=== PATIENT | male | born 1965 | race Caucasian/White ===

== ENCOUNTER 2022-04-07 10:13 | Inpatient (IN) | payer OTHER ==
[2022-04-07 11:02] VITALS: BMI 22.0
[2022-04-07] MEDS ORDERED: LOPERAMIDE HCL 2 MG CAPSULE PO PRN (11:33)
[2022-04-07] MEDS ORDERED: BENZOCAINE/MENTHOL (CHLORASEPTIC ) LOZENGE MM PRN (11:33)
[2022-04-07] MEDS ORDERED: MAGNESIUM CITRATE 300 ML BOTTLE PO PRN (11:33)
[2022-04-07] MEDS ORDERED: BISMUTH SUBSALICYLATE 524 MG/30 ML PO PRN (11:33)
[2022-04-07] MEDS ORDERED: DICYCLOMINE HCL 10 MG CAPSULE PO PRN (11:33)
[2022-04-07] MEDS ORDERED: ONDANSETRON *ODT* 4 MG TABLET SL PRN (11:33)
[2022-04-07] MEDS ORDERED: NALOXONE HCL (KLOXXADO) 8 MG SPRAY NS PRN (11:33)
[2022-04-07] MEDS ORDERED: ACETAMINOPHEN 325 MG TABLET (FP) PO PRN ×2 (11:33)
[2022-04-07] MEDS ORDERED: IBUPROFEN 600 MG TABLET (FP) PO PRN (11:33)
[2022-04-07] MEDS ORDERED: MAGNESIUM HYDROX 2400MG/30ML ORAL SUSPENSION 30 ML CUP PO PRN (11:33)
[2022-04-07] MEDS ORDERED: IBUPROFEN 400 MG TABLET (FP) PO PRN (11:33)
[2022-04-07] MEDS ORDERED: chlordiazePOXIDE HCL 25 MG CAPSULE PO ONE (11:45)
[2022-04-07] MEDS ORDERED: chlordiazePOXIDE HCL 25 MG CAPSULE ONE (11:47)
[2022-04-07] MEDS: hydrOXYzine PAMOATE 25 MG CAPSULE (FP) PO PRN ×3 (12:07→22:12)
[2022-04-07] MEDS: PRENATAL VITAMINS W/ FOLIC ACID TABLET (FP) PO SCH (12:09)
[2022-04-07] MEDS: METHOCARBAMOL 500 MG TABLET PO PRN (12:09)
[2022-04-07] MEDS: chlordiazePOXIDE HCL 25 MG CAPSULE PO PRN ×2 (13:14→20:01)
[2022-04-07 15:40] LABS: HEMATOCRIT 40.9 % (35.4-49); HEMOGLOBIN 13.6 GM/dL (11.7-16.9); MCH 30.7 pg (25.7-33.7); MCHC 33.4 g/dl (32.0-35.9); MEAN CELL VOLUME 91.8 fl (80-96); MEAN PLT VOLUME 7.4 fl (7.5-11.1); PLATELET COUNT 306 10^3/uL (134-434); RBC 4.45 M/mm3 (4.00-5.60); RDW 14.8 % (11.9-15.9); WHITE BLOOD COUNT 4.4 K/mm3 (4.0-10.0)
[2022-04-07 16:10] LABS: ALBUMIN 3.8 g/dl (3.4-5.0); BLOOD UREA NITROGEN 15.9 mg/dL (7-18); CALCIUM 9.4 mg/dL (8.5-10.1)
[2022-04-07 16:13] LABS: CREATININE 0.8 mg/dL (0.55-1.3)
[2022-04-07 16:15] LABS: BILIRUBIN,TOTAL 0.6 mg/dL (0.2-1)
[2022-04-07] MEDS: chlordiazePOXIDE HCL 25 MG CAPSULE PO SCH ×2 (17:19→22:13)
[2022-04-07] MEDS: MELATONIN 5 MG TABLETS PO SCH (22:12)
[2022-04-07] MEDS: THIAMINE HCL 100 MG TABLET (FP) PO SCH (22:14)
[2022-04-08] MEDS: chlordiazePOXIDE HCL 25 MG CAPSULE PO SCH ×4 (05:14→22:07)
[2022-04-08] MEDS: hydrOXYzine PAMOATE 25 MG CAPSULE (FP) PO PRN ×2 (10:15→16:51)
[2022-04-08] MEDS: PRENATAL VITAMINS W/ FOLIC ACID TABLET (FP) PO SCH (10:15)
[2022-04-08] MEDS ORDERED: FLU VACC QS2022-23(6MOS UP)/PF 60 MCG/0.5 ML SYRINGE IM ONE (12:00)
[2022-04-08] MEDS: chlordiazePOXIDE HCL 25 MG CAPSULE PO PRN ×2 (14:52→19:17)
[2022-04-08] MEDS: METHOCARBAMOL 500 MG TABLET PO PRN (16:51)
[2022-04-08] MEDS: LACTULOSE 20 GM/30 ML UDC (FOR ORAL USE ONLY) PO SCH ×2 (18:17→22:06)
[2022-04-08] MEDS: MELATONIN 5 MG TABLETS PO SCH (22:06)
[2022-04-08] MEDS: THIAMINE HCL 100 MG TABLET (FP) PO SCH (22:06)
[2022-04-08] MEDS: MAG HYDROX/AL HYDROX/SIMETH 30 ML UNIT-DOSE CUP PO PRN (23:58)
[2022-04-09] MEDS: chlordiazePOXIDE HCL 25 MG CAPSULE PO PRN (01:33)
[2022-04-09] MEDS: hydrOXYzine PAMOATE 25 MG CAPSULE (FP) PO PRN ×4 (01:36→19:37)
[2022-04-09] MEDS: chlordiazePOXIDE HCL 25 MG CAPSULE PO SCH ×4 (05:15→22:15)
[2022-04-09] MEDS: PRENATAL VITAMINS W/ FOLIC ACID TABLET (FP) PO SCH (10:15)
[2022-04-09] MEDS: LACTULOSE 20 GM/30 ML UDC (FOR ORAL USE ONLY) PO SCH ×4 (10:15→22:15)
[2022-04-09] MEDS: METHOCARBAMOL 500 MG TABLET PO PRN ×2 (10:15→17:17)
[2022-04-09] MEDS: THIAMINE HCL 100 MG TABLET (FP) PO SCH (22:15)
[2022-04-09] MEDS: MELATONIN 5 MG TABLETS PO SCH (22:15)
[2022-04-10] MEDS ORDERED: chlordiazePOXIDE HCL 10 MG CAPSULE PO PRN
[2022-04-10] MEDS: hydrOXYzine PAMOATE 25 MG CAPSULE (FP) PO PRN ×3 (01:07→19:33)
[2022-04-10] MEDS: METHOCARBAMOL 500 MG TABLET PO PRN ×3 (01:07→17:38)
[2022-04-10] MEDS: chlordiazePOXIDE HCL 10 MG CAPSULE PO SCH ×4 (05:37→22:19)
[2022-04-10] MEDS: PRENATAL VITAMINS W/ FOLIC ACID TABLET (FP) PO SCH (10:12)
[2022-04-10] MEDS: LACTULOSE 20 GM/30 ML UDC (FOR ORAL USE ONLY) PO SCH ×4 (10:13→23:52)
[2022-04-10] MEDS: MAG HYDROX/AL HYDROX/SIMETH 30 ML UNIT-DOSE CUP PO PRN (21:18)
[2022-04-10] MEDS: MELATONIN 5 MG TABLETS PO SCH (22:18)
[2022-04-10] MEDS: THIAMINE HCL 100 MG TABLET (FP) PO SCH (22:18)
[2022-04-11] MEDS: METHOCARBAMOL 500 MG TABLET PO PRN ×2 (00:55→18:30)
[2022-04-11] MEDS: chlordiazePOXIDE HCL 10 MG CAPSULE PO SCH ×2 (05:21→17:23)
[2022-04-11] MEDS: hydrOXYzine PAMOATE 25 MG CAPSULE (FP) PO PRN ×3 (05:22→19:25)
[2022-04-11] MEDS: PRENATAL VITAMINS W/ FOLIC ACID TABLET (FP) PO SCH (10:16)
[2022-04-11] MEDS: LACTULOSE 20 GM/30 ML UDC (FOR ORAL USE ONLY) PO SCH ×4 (10:16→22:21)
[2022-04-11] MEDS: THIAMINE HCL 100 MG TABLET (FP) PO SCH (22:21)
[2022-04-11] MEDS: MELATONIN 5 MG TABLETS PO SCH (22:21)
[2022-04-12] MEDS: hydrOXYzine PAMOATE 25 MG CAPSULE (FP) PO PRN (02:04)
[2022-04-12] MEDS ORDERED: chlordiazePOXIDE HCL 10 MG CAPSULE PO ONE (05:00)
[2022-04-12 09:51] VITALS: BP 106/62; PULSE 72; RESP 18; TEMP 97.7
[2022-04-12] MEDS: PRENATAL VITAMINS W/ FOLIC ACID TABLET (FP) PO SCH (10:46)
[2022-04-12] MEDS: LACTULOSE 20 GM/30 ML UDC (FOR ORAL USE ONLY) PO SCH (10:46)
== END 2022-04-12 11:30 | disposition other institution (70) | DRG 775 ==
LOC: YASAS 10:13 → Y6N 11:49
PROVIDERS: ADMIT Allergy & Immunology; ATTEND Surgery
PROC: HZ2ZZZZ Detoxification Services for Substance Abuse Treatment (ICD-10-PCS; principal; 2022-04-07)
DX: F10.230 Alcohol dependence with withdrawal, uncomplicated (principal); F10.280 Alcohol dependence with alcohol-induced anxiety disorder; F41.9 Anxiety disorder, unspecified; Z87.891 Personal history of nicotine dependence; Z56.0 Unemployment, unspecified; Z59.00 Homelessness unspecified
CPT/HCPCS: 36415; 80053; 82140; 85027; 86780; C9803-CS; G0008; Q2036; U0003; U0005

== ENCOUNTER 2023-03-22 09:54 | Inpatient (IN) | payer OTHER ==
[2023-03-22 10:26] VITALS: BMI 21.7
[2023-03-22] MEDS ORDERED: DICYCLOMINE HCL 10 MG CAPSULE PO PRN (12:41)
[2023-03-22] MEDS ORDERED: ONDANSETRON *ODT* 4 MG TABLET SL PRN (12:41)
[2023-03-22] MEDS ORDERED: IBUPROFEN 400 MG TABLET (FP) PO PRN (12:41)
[2023-03-22] MEDS ORDERED: MAG HYDROX/AL HYDROX/SIMETH 30 ML UNIT-DOSE CUP PO PRN (12:41)
[2023-03-22] MEDS ORDERED: MAGNESIUM HYDROX 2400MG/30ML ORAL SUSPENSION 30 ML CUP PO PRN (12:41)
[2023-03-22] MEDS ORDERED: LOPERAMIDE HCL 2 MG CAPSULE PO PRN (12:41)
[2023-03-22] MEDS ORDERED: NALOXONE HCL 0.4 MG/ML VIAL IM PRN (12:41)
[2023-03-22] MEDS ORDERED: ACETAMINOPHEN 325 MG TABLET (FP) PO PRN (12:41)
[2023-03-22] MEDS ORDERED: IBUPROFEN 600 MG TABLET (FP) PO PRN (12:41)
[2023-03-22] MEDS ORDERED: BENZOCAINE/MENTHOL (CHLORASEPTIC ) LOZENGE MM PRN (12:41)
[2023-03-22] MEDS ORDERED: guaiFENesin 600 MG TABLET.ER (FP) PO PRN (12:41)
[2023-03-22] MEDS ORDERED: BENZONATATE 200 MG CAPSULE PO PRN (12:41)
[2023-03-22] MEDS ORDERED: BISMUTH SUBSALICYLATE 524 MG/30 ML PO PRN (12:41)
[2023-03-22] MEDS ORDERED: POLYETHYLENE GLYCOL (HEALTHYLAX) 3350 17 GM PACKET PO PRN (12:41)
[2023-03-22] MEDS ORDERED: NALOXONE HCL (KLOXXADO) 8 MG SPRAY NS PRN (12:41)
[2023-03-22] MEDS ORDERED: hydrOXYzine PAMOATE 25 MG CAPSULE (FP) PO ONE (13:22)
[2023-03-22] MEDS ORDERED: chlordiazePOXIDE HCL 25 MG CAPSULE ONE (13:26)
[2023-03-22] MEDS: chlordiazePOXIDE HCL 25 MG CAPSULE PO PRN (13:28)
[2023-03-22] MEDS: hydrOXYzine PAMOATE 25 MG CAPSULE (FP) PO PRN ×2 (13:29→22:18)
[2023-03-22] MEDS: BACITRACIN ZINC 15 GM TUBE TOPICAL OINTMENT TP SCH ×2 (14:02→22:20)
[2023-03-22] MEDS: chlordiazePOXIDE HCL 25 MG CAPSULE PO SCH ×2 (16:53→22:18)
[2023-03-22] MEDS: METHOCARBAMOL 500 MG TABLET PO PRN (22:18)
[2023-03-22] MEDS: THIAMINE HCL 100 MG TABLET (FP) PO SCH (22:18)
[2023-03-22] MEDS: MELATONIN 5 MG TABLETS PO SCH (22:18)
[2023-03-23] MEDS: chlordiazePOXIDE HCL 25 MG CAPSULE PO SCH ×4 (05:44→22:09)
[2023-03-23] MEDS: hydrOXYzine PAMOATE 25 MG CAPSULE (FP) PO PRN ×3 (05:46→22:10)
[2023-03-23] MEDS: BACITRACIN 0.9 GM PACKET TP SCH ×2 (10:15→22:08)
[2023-03-23] MEDS: PRENATAL VITAMINS W/ FOLIC ACID TABLET (FP) PO SCH (10:15)
[2023-03-23 11:33] LABS: HEMATOCRIT 39.2 % (35.4-49); HEMOGLOBIN 13.5 GM/dL (11.7-16.9); MCH 30.9 pg (25.7-33.7); MCHC 34.4 g/dl (32.0-35.9); MEAN CELL VOLUME 89.9 fl (80-96); MEAN PLT VOLUME 8.4 fl (7.5-11.1); PLATELET COUNT 146 10^3/uL (134-434); RBC 4.36 M/mm3 (4.00-5.60); RDW 14.4 % (11.9-15.9)
[2023-03-23 11:38] LABS: CHLORIDE 100 mmol/L (98-107); POTASSIUM 3.8 mmol/L (3.5-5.1); SODIUM 137 mmol/L (136-145)
[2023-03-23 11:46] LABS: ALBUMIN 2.9 g/dl (3.4-5.0); CALCIUM 8.2 mg/dL (8.5-10.1)
[2023-03-23 11:47] LABS: ANION GAP 6 mmol/L (4-13); BLOOD UREA NITROGEN 11.6 mg/dL (7-18); CO2 30 mmol/L (21-32); GLUCOSE,RANDOM 102 mg/dL (74-106)
[2023-03-23 11:49] LABS: SGPT/ALT 27 U/L (13-61)
[2023-03-23 11:50] LABS: CREATININE 0.7 mg/dL (0.55-1.3); SGOT/AST 28 U/L (15-37)
[2023-03-23 11:51] LABS: BILIRUBIN,TOTAL 0.8 mg/dL (0.2-1); TOT PROT 5.9 g/dl (6.4-8.2)
[2023-03-23 11:52] LABS: ALK PHOS 71 U/L (45-117)
[2023-03-23] MEDS: chlordiazePOXIDE HCL 25 MG CAPSULE PO PRN (14:23)
[2023-03-23] MEDS: THIAMINE HCL 100 MG TABLET (FP) PO SCH (22:09)
[2023-03-23] MEDS: MELATONIN 5 MG TABLETS PO SCH (22:09)
[2023-03-23] MEDS: METHOCARBAMOL 500 MG TABLET PO PRN (22:10)
[2023-03-24] MEDS: chlordiazePOXIDE HCL 25 MG CAPSULE PO SCH ×4 (05:26→22:08)
[2023-03-24] MEDS: hydrOXYzine PAMOATE 25 MG CAPSULE (FP) PO PRN ×3 (05:27→22:10)
[2023-03-24] MEDS: BACITRACIN 0.9 GM PACKET TP SCH ×2 (10:08→22:08)
[2023-03-24] MEDS: PRENATAL VITAMINS W/ FOLIC ACID TABLET (FP) PO SCH (10:09)
[2023-03-24] MEDS: chlordiazePOXIDE HCL 25 MG CAPSULE PO PRN ×2 (14:31→19:03)
[2023-03-24] MEDS: MELATONIN 5 MG TABLETS PO SCH (22:09)
[2023-03-24] MEDS: THIAMINE HCL 100 MG TABLET (FP) PO SCH (22:09)
[2023-03-24] MEDS: METHOCARBAMOL 500 MG TABLET PO PRN (22:28)
[2023-03-25] MEDS ORDERED: chlordiazePOXIDE HCL 10 MG CAPSULE PO PRN
[2023-03-25] MEDS: chlordiazePOXIDE HCL 10 MG CAPSULE PO SCH ×4 (05:22→22:06)
[2023-03-25] MEDS: hydrOXYzine PAMOATE 25 MG CAPSULE (FP) PO PRN ×3 (07:07→23:08)
[2023-03-25] MEDS: PRENATAL VITAMINS W/ FOLIC ACID TABLET (FP) PO SCH (10:14)
[2023-03-25] MEDS: BACITRACIN 0.9 GM PACKET TP SCH ×2 (10:17→22:06)
[2023-03-25] MEDS: METHOCARBAMOL 500 MG TABLET PO PRN (22:06)
[2023-03-25] MEDS: THIAMINE HCL 100 MG TABLET (FP) PO SCH (22:06)
[2023-03-25] MEDS: MELATONIN 5 MG TABLETS PO SCH (22:06)
[2023-03-26] MEDS: chlordiazePOXIDE HCL 10 MG CAPSULE PO SCH ×2 (05:22→17:28)
[2023-03-26] MEDS: hydrOXYzine PAMOATE 25 MG CAPSULE (FP) PO PRN ×3 (05:23→22:21)
[2023-03-26] MEDS: BACITRACIN 0.9 GM PACKET TP SCH ×2 (10:20→22:21)
[2023-03-26] MEDS: PRENATAL VITAMINS W/ FOLIC ACID TABLET (FP) PO SCH (10:20)
[2023-03-26] MEDS: MELATONIN 5 MG TABLETS PO SCH (22:21)
[2023-03-26] MEDS: METHOCARBAMOL 500 MG TABLET PO PRN (22:21)
[2023-03-26] MEDS: THIAMINE HCL 100 MG TABLET (FP) PO SCH (22:21)
[2023-03-27] MEDS ORDERED: chlordiazePOXIDE HCL 10 MG CAPSULE PO ONE (05:00)
[2023-03-27] MEDS: hydrOXYzine PAMOATE 25 MG CAPSULE (FP) PO PRN (05:12)
[2023-03-27 09:18] VITALS: BP 124/68; PULSE 80; RESP 16; TEMP 97.8
[2023-03-27] MEDS: BACITRACIN 0.9 GM PACKET TP SCH (10:53)
[2023-03-27] MEDS: PRENATAL VITAMINS W/ FOLIC ACID TABLET (FP) PO SCH (10:53)
== END 2023-03-27 09:15 | disposition home or self-care (01) | DRG 775 ==
LOC: YASAS 09:54 → SUATTDRO 09:54 → Y3N 13:56
PROVIDERS: ADMIT Allergy & Immunology; ATTEND Surgery
PROC: HZ2ZZZZ Detoxification Services for Substance Abuse Treatment (ICD-10-PCS; principal; 2023-03-22)
DX: F10.230 Alcohol dependence with withdrawal, uncomplicated (principal); F10.280 Alcohol dependence with alcohol-induced anxiety disorder; S00.81XD Abrasion of other part of head, subsequent encounter; W19.XXXD Unspecified fall, subsequent encounter; Z56.0 Unemployment, unspecified; Z59.00 Homelessness unspecified
CPT/HCPCS: 36415; 80053; 80307; 85027; 86780; 87635; 87811; Q0162

== ENCOUNTER 2023-05-28 15:38 | Inpatient (IN) | payer OTHER ==
[2023-05-28 17:00] VITALS: BMI 21.0
[2023-05-28] MEDS ORDERED: POLYETHYLENE GLYCOL (HEALTHYLAX) 3350 17 GM PACKET PO PRN (18:09)
[2023-05-28] MEDS ORDERED: guaiFENesin 600 MG TABLET.ER (FP) PO PRN (18:09)
[2023-05-28] MEDS ORDERED: MAGNESIUM HYDROX 2400MG/30ML ORAL SUSPENSION 30 ML CUP PO PRN (18:09)
[2023-05-28] MEDS ORDERED: ACETAMINOPHEN 325 MG TABLET (FP) PO PRN (18:09)
[2023-05-28] MEDS ORDERED: NALOXONE HCL (KLOXXADO) 8 MG SPRAY NS PRN (18:09)
[2023-05-28] MEDS ORDERED: BENZOCAINE/MENTHOL (CHLORASEPTIC ) LOZENGE MM PRN (18:09)
[2023-05-28] MEDS ORDERED: BISMUTH SUBSALICYLATE 524 MG/30 ML PO PRN (18:09)
[2023-05-28] MEDS ORDERED: BENZONATATE 200 MG CAPSULE PO PRN (18:09)
[2023-05-28] MEDS ORDERED: NALOXONE HCL 0.4 MG/ML VIAL IM PRN (18:09)
[2023-05-28] MEDS ORDERED: IBUPROFEN 400 MG TABLET (FP) PO PRN (18:09)
[2023-05-28] MEDS ORDERED: IBUPROFEN 600 MG TABLET (FP) PO PRN (18:09)
[2023-05-28] MEDS ORDERED: LOPERAMIDE HCL 2 MG CAPSULE PO PRN (18:09)
[2023-05-28] MEDS ORDERED: ONDANSETRON *ODT* 4 MG TABLET SL PRN (18:09)
[2023-05-28] MEDS ORDERED: DICYCLOMINE HCL 10 MG CAPSULE PO PRN (18:09)
[2023-05-28] MEDS ORDERED: MAG HYDROX/AL HYDROX/SIMETH 30 ML UNIT-DOSE CUP PO PRN (18:09)
[2023-05-28] MEDS ORDERED: diazePAM 5 MG TABLET ONE (18:39)
[2023-05-28] MEDS: diazePAM 5 MG TABLET PO PRN (18:41)
[2023-05-28] MEDS: MELATONIN 5 MG TABLETS PO SCH (22:22)
[2023-05-28] MEDS: THIAMINE HCL 100 MG TABLET (FP) PO SCH (22:22)
[2023-05-28] MEDS: diazePAM 5 MG TABLET PO SCH (22:22)
[2023-05-29] MEDS: diazePAM 5 MG TABLET PO SCH ×4 (05:30→22:07)
[2023-05-29] MEDS: PRENATAL VITAMINS W/ FOLIC ACID TABLET (FP) PO SCH (10:21)
[2023-05-29 10:32] LABS: HEMATOCRIT 40.1 % (35.4-49); HEMOGLOBIN 13.3 GM/dL (11.7-16.9); MCH 30.5 pg (25.7-33.7); MCHC 33.2 g/dl (32.0-35.9); MEAN CELL VOLUME 91.8 fl (80-96); MEAN PLT VOLUME 7.6 fl (7.5-11.1); PLATELET COUNT 174 10^3/uL (134-434); RBC 4.37 M/mm3 (4.00-5.60); RDW 15.8 % (11.9-15.9); WHITE BLOOD COUNT 3.3 K/mm3 (4.0-10.0)
[2023-05-29 11:21] LABS: CHLORIDE 99 mmol/L (98-107); POTASSIUM 4.1 mmol/L (3.5-5.1); SODIUM 137 mmol/L (136-145)
[2023-05-29 11:38] LABS: ALBUMIN 3.1 g/dl (3.4-5.0); ANION GAP 6 mmol/L (4-13); BLOOD UREA NITROGEN 15.6 mg/dL (7-18); CALCIUM 9.1 mg/dL (8.5-10.1); CO2 32 mmol/L (21-32); GLUCOSE,RANDOM 110 mg/dL (74-106)
[2023-05-29 11:42] LABS: CREATININE 0.6 mg/dL (0.55-1.3); SGOT/AST 26 U/L (15-37)
[2023-05-29 11:43] LABS: SGPT/ALT 26 U/L (13-61)
[2023-05-29 11:44] LABS: BILIRUBIN,TOTAL 0.5 mg/dL (0.2-1)
[2023-05-29 11:45] LABS: ALK PHOS 53 U/L (45-117)
[2023-05-29] MEDS: diazePAM 5 MG TABLET PO PRN (14:31)
[2023-05-29] MEDS: MELATONIN 5 MG TABLETS PO SCH (22:07)
[2023-05-29] MEDS: THIAMINE HCL 100 MG TABLET (FP) PO SCH (22:07)
[2023-05-30] MEDS: diazePAM 5 MG TABLET PO SCH ×3 (05:55→22:17)
[2023-05-30] MEDS: PRENATAL VITAMINS W/ FOLIC ACID TABLET (FP) PO SCH (10:10)
[2023-05-30] MEDS: diazePAM 5 MG TABLET PO PRN ×2 (10:11→17:22)
[2023-05-30] MEDS: THIAMINE HCL 100 MG TABLET (FP) PO SCH (22:16)
[2023-05-30] MEDS: MELATONIN 5 MG TABLETS PO SCH (22:16)
[2023-05-31] MEDS: METHOCARBAMOL 500 MG TABLET PO PRN ×2 (02:12→21:53)
[2023-05-31] MEDS: diazePAM 5 MG TABLET PO SCH ×2 (05:25→17:16)
[2023-05-31] MEDS: hydrOXYzine PAMOATE 25 MG CAPSULE (FP) PO PRN ×2 (09:23→21:53)
[2023-05-31] MEDS: PRENATAL VITAMINS W/ FOLIC ACID TABLET (FP) PO SCH (09:23)
[2023-05-31] MEDS: diazePAM 5 MG TABLET PO PRN ×2 (09:23→14:33)
[2023-05-31 20:52] VITALS: RESP 16
[2023-05-31] MEDS: THIAMINE HCL 100 MG TABLET (FP) PO SCH (21:53)
[2023-05-31] MEDS: MELATONIN 5 MG TABLETS PO SCH (21:53)
[2023-06-01] MEDS ORDERED: diazePAM 5 MG TABLET PO ONE (06:00)
[2023-06-01 09:16] VITALS: TEMP 97.6
[2023-06-01] MEDS: PRENATAL VITAMINS W/ FOLIC ACID TABLET (FP) PO SCH (10:03)
[2023-06-01 13:19] VITALS: BP 97/62; PULSE 60
== END 2023-06-01 14:56 | disposition other institution (70) | DRG 775 ==
LOC: YASAS 15:38 → Y3N 18:44
PROVIDERS: ADMIT Allergy & Immunology; ATTEND Surgery
PROC: HZ2ZZZZ Detoxification Services for Substance Abuse Treatment (ICD-10-PCS; principal; 2023-05-28)
DX: F10.230 Alcohol dependence with withdrawal, uncomplicated (principal); Z91.81 History of falling; Z59.00 Homelessness unspecified
CPT/HCPCS: 36415; 80053; 80307; 85027; 86780; 87635

== ENCOUNTER 2023-06-01 14:56 | Inpatient (IN) | payer OTHER ==
[2023-06-01] MEDS ORDERED: POLYETHYLENE GLYCOL (HEALTHYLAX) 3350 17 GM PACKET PO PRN (15:45)
[2023-06-01] MEDS ORDERED: ACETAMINOPHEN 325 MG TABLET (FP) PO PRN (15:45)
[2023-06-01] MEDS ORDERED: NALOXONE HCL 0.4 MG/ML VIAL IVPUSH PRN (15:45)
[2023-06-01] MEDS ORDERED: METHOCARBAMOL 500 MG TABLET PO PRN (15:45)
[2023-06-01] MEDS ORDERED: AMMONIUM LACTATE 12% LOTION 225 GM BOTTLE TP PRN (15:45)
[2023-06-01] MEDS ORDERED: IBUPROFEN 400 MG TABLET (FP) PO PRN (15:45)
[2023-06-01] MEDS ORDERED: COLLOIDAL OATMEAL 1 BAR EACH TP PRN (15:45)
[2023-06-01] MEDS ORDERED: hydrOXYzine PAMOATE 25 MG CAPSULE (FP) PO PRN (15:45)
[2023-06-01] MEDS ORDERED: LOPERAMIDE HCL 2 MG CAPSULE PO PRN (15:45)
[2023-06-01] MEDS ORDERED: NALOXONE HCL (KLOXXADO) 8 MG SPRAY NS PRN (15:45)
[2023-06-01] MEDS ORDERED: BENZONATATE 200 MG CAPSULE PO PRN (15:45)
[2023-06-01] MEDS ORDERED: BENZOCAINE/MENTHOL (CHLORASEPTIC ) LOZENGE MM PRN (15:45)
[2023-06-01] MEDS ORDERED: MAG HYDROX/AL HYDROX/SIMETH 30 ML UNIT-DOSE CUP PO PRN (15:45)
[2023-06-01] MEDS ORDERED: IBUPROFEN 600 MG TABLET (FP) PO PRN (15:45)
[2023-06-01] MEDS ORDERED: guaiFENesin 600 MG TABLET.ER (FP) PO PRN (15:45)
[2023-06-01] MEDS ORDERED: MAGNESIUM HYDROX 2400MG/30ML ORAL SUSPENSION 30 ML CUP PO PRN (15:45)
[2023-06-01] MEDS: THIAMINE HCL 100 MG TABLET (FP) PO SCH (21:08)
[2023-06-01] MEDS: MELATONIN 5 MG TABLETS PO SCH (21:08)
[2023-06-02] MEDS: PRENATAL VITAMINS W/ FOLIC ACID TABLET (FP) PO SCH (09:40)
[2023-06-02] MEDS ORDERED: TUBERCULIN PPD 5 TU/0.1ML SYRINGE (IN PATIENT USE ONLY) ID ONE (12:00)
[2023-06-02] MEDS: MELATONIN 5 MG TABLETS PO SCH (21:19)
[2023-06-02] MEDS: THIAMINE HCL 100 MG TABLET (FP) PO SCH (21:19)
[2023-06-03] MEDS: PRENATAL VITAMINS W/ FOLIC ACID TABLET (FP) PO SCH (10:07)
[2023-06-03] MEDS: THIAMINE HCL 100 MG TABLET (FP) PO SCH (21:05)
[2023-06-03] MEDS: MELATONIN 5 MG TABLETS PO SCH (21:05)
[2023-06-04] MEDS: PRENATAL VITAMINS W/ FOLIC ACID TABLET (FP) PO SCH (09:47)
[2023-06-04] MEDS: THIAMINE HCL 100 MG TABLET (FP) PO SCH (21:22)
[2023-06-04] MEDS: MELATONIN 5 MG TABLETS PO SCH (21:22)
[2023-06-05] MEDS: PRENATAL VITAMINS W/ FOLIC ACID TABLET (FP) PO SCH (10:06)
[2023-06-05] MEDS: MELATONIN 5 MG TABLETS PO SCH (21:11)
[2023-06-05] MEDS: THIAMINE HCL 100 MG TABLET (FP) PO SCH (21:11)
[2023-06-06] MEDS: PRENATAL VITAMINS W/ FOLIC ACID TABLET (FP) PO SCH (10:08)
[2023-06-06] MEDS: THIAMINE HCL 100 MG TABLET (FP) PO SCH (21:31)
[2023-06-06] MEDS: MELATONIN 5 MG TABLETS PO SCH (21:31)
[2023-06-07] MEDS: PRENATAL VITAMINS W/ FOLIC ACID TABLET (FP) PO SCH (09:42)
[2023-06-07] MEDS: MELATONIN 5 MG TABLETS PO SCH (21:14)
[2023-06-07] MEDS: THIAMINE HCL 100 MG TABLET (FP) PO SCH (21:14)
[2023-06-08] MEDS: PRENATAL VITAMINS W/ FOLIC ACID TABLET (FP) PO SCH (10:25)
[2023-06-08] MEDS: THIAMINE HCL 100 MG TABLET (FP) PO SCH (21:25)
[2023-06-08] MEDS: MELATONIN 5 MG TABLETS PO SCH (21:25)
[2023-06-09] MEDS: PRENATAL VITAMINS W/ FOLIC ACID TABLET (FP) PO SCH (10:17)
[2023-06-09] MEDS: MELATONIN 5 MG TABLETS PO SCH (21:03)
[2023-06-09] MEDS: THIAMINE HCL 100 MG TABLET (FP) PO SCH (21:03)
[2023-06-10] MEDS: PRENATAL VITAMINS W/ FOLIC ACID TABLET (FP) PO SCH (09:53)
[2023-06-10] MEDS: THIAMINE HCL 100 MG TABLET (FP) PO SCH (21:03)
[2023-06-10] MEDS: MELATONIN 5 MG TABLETS PO SCH (21:03)
[2023-06-11] MEDS: PRENATAL VITAMINS W/ FOLIC ACID TABLET (FP) PO SCH (10:10)
[2023-06-11] MEDS: THIAMINE HCL 100 MG TABLET (FP) PO SCH (21:28)
[2023-06-11] MEDS: MELATONIN 5 MG TABLETS PO SCH (21:28)
[2023-06-12] MEDS: PRENATAL VITAMINS W/ FOLIC ACID TABLET (FP) PO SCH (10:08)
[2023-06-12] MEDS: THIAMINE HCL 100 MG TABLET (FP) PO SCH (21:12)
[2023-06-12] MEDS: MELATONIN 5 MG TABLETS PO SCH (21:12)
[2023-06-13] MEDS: PRENATAL VITAMINS W/ FOLIC ACID TABLET (FP) PO SCH (10:30)
[2023-06-13] MEDS: THIAMINE HCL 100 MG TABLET (FP) PO SCH (21:13)
[2023-06-13] MEDS: MELATONIN 5 MG TABLETS PO SCH (21:13)
[2023-06-14] MEDS: PRENATAL VITAMINS W/ FOLIC ACID TABLET (FP) PO SCH (09:54)
[2023-06-14] MEDS: MELATONIN 5 MG TABLETS PO SCH (21:26)
[2023-06-14] MEDS: THIAMINE HCL 100 MG TABLET (FP) PO SCH (21:26)
[2023-06-15] MEDS: PRENATAL VITAMINS W/ FOLIC ACID TABLET (FP) PO SCH (10:06)
[2023-06-15] MEDS: MELATONIN 5 MG TABLETS PO SCH (21:07)
[2023-06-15] MEDS: THIAMINE HCL 100 MG TABLET (FP) PO SCH (21:07)
[2023-06-16] MEDS: PRENATAL VITAMINS W/ FOLIC ACID TABLET (FP) PO SCH (09:47)
[2023-06-16] MEDS: THIAMINE HCL 100 MG TABLET (FP) PO SCH (21:01)
[2023-06-16] MEDS: MELATONIN 5 MG TABLETS PO SCH (21:01)
[2023-06-17] MEDS: PRENATAL VITAMINS W/ FOLIC ACID TABLET (FP) PO SCH (10:14)
[2023-06-17] MEDS: THIAMINE HCL 100 MG TABLET (FP) PO SCH (21:15)
[2023-06-17] MEDS: MELATONIN 5 MG TABLETS PO SCH (21:15)
[2023-06-18] MEDS: PRENATAL VITAMINS W/ FOLIC ACID TABLET (FP) PO SCH (09:58)
[2023-06-18] MEDS: THIAMINE HCL 100 MG TABLET (FP) PO SCH (21:03)
[2023-06-18] MEDS: MELATONIN 5 MG TABLETS PO SCH (21:03)
[2023-06-19] MEDS: PRENATAL VITAMINS W/ FOLIC ACID TABLET (FP) PO SCH (10:26)
[2023-06-19] MEDS: MELATONIN 5 MG TABLETS PO SCH (21:07)
[2023-06-19] MEDS: THIAMINE HCL 100 MG TABLET (FP) PO SCH (21:07)
[2023-06-20] MEDS: PRENATAL VITAMINS W/ FOLIC ACID TABLET (FP) PO SCH (09:57)
[2023-06-20] MEDS: MELATONIN 5 MG TABLETS PO SCH (21:19)
[2023-06-20] MEDS: THIAMINE HCL 100 MG TABLET (FP) PO SCH (21:19)
[2023-06-21] MEDS: PRENATAL VITAMINS W/ FOLIC ACID TABLET (FP) PO SCH (10:26)
[2023-06-21] MEDS: THIAMINE HCL 100 MG TABLET (FP) PO SCH (21:16)
[2023-06-21] MEDS: MELATONIN 5 MG TABLETS PO SCH (21:16)
[2023-06-22] MEDS: PRENATAL VITAMINS W/ FOLIC ACID TABLET (FP) PO SCH (10:29)
[2023-06-22] MEDS: MELATONIN 5 MG TABLETS PO SCH (21:13)
[2023-06-22] MEDS: THIAMINE HCL 100 MG TABLET (FP) PO SCH (21:13)
[2023-06-23] MEDS: PRENATAL VITAMINS W/ FOLIC ACID TABLET (FP) PO SCH (10:13)
[2023-06-23] MEDS: MELATONIN 5 MG TABLETS PO SCH (21:03)
[2023-06-23] MEDS: THIAMINE HCL 100 MG TABLET (FP) PO SCH (21:03)
[2023-06-24] MEDS: PRENATAL VITAMINS W/ FOLIC ACID TABLET (FP) PO SCH (10:42)
[2023-06-24] MEDS: THIAMINE HCL 100 MG TABLET (FP) PO SCH (21:28)
[2023-06-24] MEDS: MELATONIN 5 MG TABLETS PO SCH (21:28)
[2023-06-25] MEDS: PRENATAL VITAMINS W/ FOLIC ACID TABLET (FP) PO SCH (10:17)
[2023-06-25] MEDS: THIAMINE HCL 100 MG TABLET (FP) PO SCH (21:27)
[2023-06-25] MEDS: MELATONIN 5 MG TABLETS PO SCH (21:27)
[2023-06-26] MEDS: PRENATAL VITAMINS W/ FOLIC ACID TABLET (FP) PO SCH (10:35)
[2023-06-26] MEDS: THIAMINE HCL 100 MG TABLET (FP) PO SCH (21:45)
[2023-06-26] MEDS: MELATONIN 5 MG TABLETS PO SCH (21:45)
[2023-06-27] MEDS: PRENATAL VITAMINS W/ FOLIC ACID TABLET (FP) PO SCH (09:49)
[2023-06-27] MEDS: MELATONIN 5 MG TABLETS PO SCH (21:31)
[2023-06-27] MEDS: THIAMINE HCL 100 MG TABLET (FP) PO SCH (21:31)
[2023-06-28] MEDS: PRENATAL VITAMINS W/ FOLIC ACID TABLET (FP) PO SCH (10:17)
[2023-06-28] MEDS: THIAMINE HCL 100 MG TABLET (FP) PO SCH (21:51)
[2023-06-28] MEDS: MELATONIN 5 MG TABLETS PO SCH (21:51)
[2023-06-29 07:26] VITALS: BP 131/77; PULSE 57; RESP 17; TEMP 97.1
[2023-06-29] MEDS: PRENATAL VITAMINS W/ FOLIC ACID TABLET (FP) PO SCH (09:52)
== END 2023-06-29 10:12 | disposition home or self-care (01) | DRG 772 ==
LOC: YASAS 14:56 → Y3W 14:57
PROVIDERS: ADMIT Allergy & Immunology; ATTEND Psychiatry & Neurology Pain Medicine
PROC: HZ42ZZZ Group Counseling for Substance Abuse Treatment, Cognitive-Behavioral (ICD-10-PCS; principal; 2023-06-01)
DX: F10.20 Alcohol dependence, uncomplicated (principal); F41.9 Anxiety disorder, unspecified; Z91.81 History of falling; Z56.0 Unemployment, unspecified
CPT/HCPCS: 36415; 82140; 86803